=== PATIENT | female | born 1955 | race Caucasian/White ===

== ENCOUNTER 2016-08-08 13:07 | Emergency (ER) | payer OTHER ==
[2016-08-08 14:27] VITALS: TEMP 98; BMI 25.7
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
[2016-08-08] MEDS ORDERED: ONDANSETRON HCL 4 MG ODT TAB PO ONE (15:24)
[2016-08-08] MEDS ORDERED: HYDROCODONE 5 MG/ACETAMIN 325 MG TAB PO ONE (15:24)
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
[2016-08-08 17:22] VITALS: BP 141/68; PULSE 79
== END 2016-08-08 17:32 | disposition home or self-care (01) ==
LOC: ED 13:07 → EDMC 17:32
DX: S22.22XA Fracture of body of sternum, initial encounter for closed fracture (principal); V43.62XA Car passenger injured in collision with other type car in traffic accident, initial encounter
CPT/HCPCS: 71020; 71250; 99284; G0237; J3490